=== PATIENT | female | born 1975 | race Caucasian/White ===

== ENCOUNTER 2024-09-15 07:18 | Emergency (ER) | payer MEDICARE, MEDICAID ==
[~2024-09-15] VITALS: Ht 167.6 cm; Wt 113.2 kg
[2024-09-15 07:21] VITALS: TEMP 98
[2024-09-15] MEDS: ONDANSETRON 4MG 2ML VIAL IV ONE (11:05)
[2024-09-15] MEDS: KETOROLAC 30 MG/ML 1ML VIAL IV ONE (11:05)
[2024-09-15 11:40] LABS: BASO % 0.1 % (0.0-1.0); EOS # 0.1 10^3/uL (0.0-0.5); EOS % 1.5 % (0.0-3.0); HEMATOCRIT 42.8 % (36.0-47.0); HEMOGLOBIN 14.1 g/dl (12.0-15.5); LYMPH # 2.1 10^3/uL (1.5-5.0); LYMPH % 28.6 % (24.0-44.0); MEAN CORPUSCULAR HEMOGLOBIN 29.9 pg (27.0-33.0); MEAN CORPUSCULAR HGB CONC 32.9 g/dl (32.0-36.5); MEAN CORPUSCULAR VOLUME 90.9 fl (80.0-96.0); MONO # 0.6 10^3/uL (0.0-0.8); MONO % 8.3 % (2.0-8.0); NEUTROPHILS # 4.4 10^3/uL (1.5-8.5); NEUTROPHILS % 61.2 % (36.0-66.0); PLATELET COUNT, AUTOMATED 252 10^3/uL (150-450); RED BLOOD COUNT 4.71 10^6/uL (4.00-5.40); WHITE BLOOD COUNT 7.2 10^3/uL (4.0-10.0)
[2024-09-15] MEDS ORDERED: ISOVUE-370 76% 100ML VIAL As Ordered ONE (11:41)
[2024-09-15 12:09] LABS: LIPASE 22 U/L (12-53)
[2024-09-15 12:11] LABS: ALBUMIN 3.5 G/DL (3.2-5.2); ALKALINE PHOSPHATASE 77 U/L (35-104); ALT/SGPT 23 U/L (7.0-40); AST/SGOT 15 U/L (<34); BILIRUBIN,DIRECT < 0.1 MG/DL (<0.4); BILIRUBIN,TOTAL 0.2 MG/DL (0.3-1.2); BLOOD UREA NITROGEN 11 MG/DL (9-23); CARBON DIOXIDE LEVEL 26 MMOL/L (20-31); CHLORIDE LEVEL 107 MMOL/L (98-107); CREATININE FOR GFR 0.69 MG/DL (0.55-1.30); GLOMERULAR FILTRATION RATE > 60.0 (>51); GLUCOSE, FASTING 96 MG/DL (60-100); POTASSIUM SERUM 4.7 MMOL/L (3.5-5.1); SODIUM LEVEL 140 MMOL/L (136-145); TOTAL PROTEIN 6.5 G/DL (5.7-8.2)
[2024-09-15 14:39] VITALS: O2SAT 97
[2024-09-15 14:45] VITALS: BP 136/74
== END 2024-09-15 15:01 | disposition home or self-care (01) ==
LOC: M ED 07:18
DX: R11.11 Vomiting without nausea (principal); R91.1 Solitary pulmonary nodule; K21.9 Gastro-esophageal reflux disease without esophagitis; I10 Essential (primary) hypertension; G43.909 Migraine, unspecified, not intractable, without status migrainosus; J45.909 Unspecified asthma, uncomplicated; F17.200 Nicotine dependence, unspecified, uncomplicated; Z91.030 Bee allergy status
CPT/HCPCS: 71250; 74177; 80047; 80048; 80076; 83690; 85025; 87486; 87581; 87633; 87798; 93041; 96374; 99284; J1885; J2405; Q9967

== ENCOUNTER → 2024-12-18 | Outpatient (CLI) | payer MEDICARE, MEDICAID | LOC: M RAD 08:15 | PROVIDERS: ATTEND Internal Medicine Pulmonary Disease | DX: R91.8 Other nonspecific abnormal finding of lung field (principal); I25.84 Coronary atherosclerosis due to calcified coronary lesion ==

== ENCOUNTER 2025-05-29 11:18 | Emergency (ER) | payer MEDICARE, MEDICAID ==
[~2025-05-29] VITALS: Ht 167.6 cm; Wt 107.5 kg
[2025-05-29] MEDS: TENECTEPLASE 50 MG/10 ML VIAL IV STA (11:27)
[2025-05-29] MEDS: MORPHINE 2 MG/ML 1 ML VIAL IV PRN (11:33)
[2025-05-29 11:37] VITALS: TEMP 97.2
[2025-05-29 11:42] LABS: BASO # 0.0 10^3/uL (0.0-0.2); BASO % 0.1 % (0.0-1.0); EOS # 0.1 10^3/uL (0.0-0.5); EOS % 0.9 % (0.0-3.0); LYMPH # 2.5 10^3/uL (1.5-5.0); LYMPH % 27.7 % (24.0-44.0); MONO # 0.8 10^3/uL (0.0-0.8); MONO % 8.5 % (2.0-8.0); NEUTROPHILS # 5.7 10^3/uL (1.5-8.5); NEUTROPHILS % 62.5 % (36.0-66.0); PLATELET COUNT, AUTOMATED 265 10^3/uL (150-450)
[2025-05-29] MEDS: CLOPIDOGREL 300 MG TAB PO STA (11:43)
[2025-05-29] MEDS ORDERED: HEPARIN SOD 5000 UNITS/ML 1 ML VIAL/SYRINGE IV PRN (11:45)
[2025-05-29] MEDS: HEPARIN SOD 5000 UNITS/ML 1 ML VIAL/SYRINGE IV ONE (11:50)
[2025-05-29] MEDS: HEPARIN DRIP 25,000 UNITS in IV 1 EA IV SCH (12:00)
[2025-05-29 12:04] LABS: INR 0.95
[2025-05-29 12:06] LABS: CALCIUM LEVEL 9.2 MG/DL (8.5-10.1); CARBON DIOXIDE LEVEL 23 MMOL/L (20-31); CHLORIDE LEVEL 110 MMOL/L (98-107); CK-MB VALUE MASS 3.7 NG/ML (<3.6); CREATININE FOR GFR 0.71 MG/DL (0.55-1.30); GLOMERULAR FILTRATION RATE > 90.0 (>51); POTASSIUM SERUM 4.4 MMOL/L (3.5-5.1); SODIUM LEVEL 144 MMOL/L (136-145)
[2025-05-29 12:10] LABS: CPK CREATINE PHOSPHOKINASE 93 U/L (34-145); MB/CK RELATIVE INDEX 3.97 (< OR =4)
[2025-05-29 12:11] VITALS: BP 131/89; O2SAT 95
== END 2025-05-29 12:20 | disposition short-term general hospital (02) ==
LOC: EDBD 11:18 → M ED 11:18
DX: I21.19 ST elevation (STEMI) myocardial infarction involving other coronary artery of inferior wall (principal); I21.29 ST elevation (STEMI) myocardial infarction involving other sites; R91.8 Other nonspecific abnormal finding of lung field; I10 Essential (primary) hypertension; E66.9 Obesity, unspecified; J45.909 Unspecified asthma, uncomplicated; J44.9 Chronic obstructive pulmonary disease, unspecified; G43.909 Migraine, unspecified, not intractable, without status migrainosus; F17.200 Nicotine dependence, unspecified, uncomplicated
CPT/HCPCS: 71045; 80048; 82550; 82553; 84484; 85025; 85610; 85730; 93005; 93041; 94760; 96365; 96375; 99291; J3101

== ENCOUNTER 2025-06-14 21:21 | Emergency (ER) | payer MEDICARE, MEDICAID ==
[~2025-06-14] VITALS: Ht 167.6 cm; Wt 102.5 kg
[2025-06-14 21:45] VITALS: TEMP 98
[2025-06-14 22:36] LABS: BASO # 0.0 10^3/uL (0.0-0.2); BASO % 0.1 % (0.0-1.0); EOS # 0.1 10^3/uL (0.0-0.5); EOS % 0.7 % (0.0-3.0); LYMPH # 2.3 10^3/uL (1.5-5.0); LYMPH % 25.7 % (24.0-44.0); MONO # 0.7 10^3/uL (0.0-0.8); MONO % 8.4 % (2.0-8.0); NEUTROPHILS # 5.8 10^3/uL (1.5-8.5); NEUTROPHILS % 64.9 % (36.0-66.0); PLATELET COUNT, AUTOMATED 296 10^3/uL (150-450)
[2025-06-14] MEDS: ACETAMINOPHEN *IV* 1,000 MG in IV 1 EA IV ONE (23:05)
[2025-06-14 23:20] LABS: CALCIUM LEVEL 9.1 MG/DL (8.5-10.1); CARBON DIOXIDE LEVEL 23.0 MMOL/L (20-31); CHLORIDE LEVEL 106.0 MMOL/L (98-107); CK-MB VALUE MASS 3.6 NG/ML (<3.6); CREATININE FOR GFR 0.87 MG/DL (0.55-1.30); GLOMERULAR FILTRATION RATE 80.1 (>51); POTASSIUM SERUM 4.4 MMOL/L (3.5-5.1); SODIUM LEVEL 139.0 MMOL/L (136-145)
[2025-06-14 23:37] LABS: CPK CREATINE PHOSPHOKINASE 92.0 U/L (34-145); MB/CK RELATIVE INDEX 3.91 (< OR =4)
[2025-06-15 01:02] LABS: CK-MB VALUE MASS 3.5 NG/ML (<3.6)
[2025-06-15 01:03] LABS: CPK CREATINE PHOSPHOKINASE 80.0 U/L (34-145); MB/CK RELATIVE INDEX 4.37 (< OR =4)
[2025-06-15 02:10] LABS: CK-MB VALUE MASS 3.6 NG/ML (<3.6)
[2025-06-15 02:11] LABS: CPK CREATINE PHOSPHOKINASE 79.0 U/L (34-145); MB/CK RELATIVE INDEX 4.55 (< OR =4)
[2025-06-15 03:39] VITALS: BP 109/63; O2SAT 98
== END 2025-06-15 03:57 | disposition home or self-care (01) ==
LOC: M ED 21:21
DX: F43.0 Acute stress reaction (principal); R00.2 Palpitations; I25.2 Old myocardial infarction; I10 Essential (primary) hypertension; J44.9 Chronic obstructive pulmonary disease, unspecified; Z86.73 Personal history of transient ischemic attack (TIA), and cerebral infarction without residual deficits; F44.5 Conversion disorder with seizures or convulsions; Z95.5 Presence of coronary angioplasty implant and graft; F17.200 Nicotine dependence, unspecified, uncomplicated; Z91.030 Bee allergy status
CPT/HCPCS: 70450; 71045; 80048; 82550; 82553; 84484; 85025; 85730; 93005; 93041; 94760; 99285; J0134; J2060